=== PATIENT | female | born 1960 | race Caucasian/White ===

== ENCOUNTER 2017-04-26 16:00 | Outpatient (RCR) | payer BC ==
[2017-02-10 22:45] VITALS: BP 114/55
[~2017-04-26 16:00] MED LIST: CEFDINIR300 MG PO; CLONAZEPAM0.125 MG; CORTEF 10MG TAB10 MG PO; CORTEF 20MG TAB20 MG PO; DEPAKOTE ER 50500 MG PO; DEPAKOTE ER500 M1 PO; DESYREL 100MG100 MG PO; FLORINEF 00.1 MG/TAB PO; FLORINEF ACETA0.1 MG PO; HYDROCORTISONE 10MG PO; INDERAL20 MG PO; KLONOPIN0.5 MG PO; LEXAPRO20 MG PO; MYSOLINE50 M1 PO; PEPTO BISMOL262 MG PO; PREDNISONE10 MG PO; SYMBICORT1 AE5 IH; SYNTHROID RP0.1 MG PO; SYNTHROID0.075 MG PO; ULTRAM 50MG TAB50 MG PO; VITAMIN D32000 I1 PO; XANAX .25M0.25 MG/TA PO; XANAX0.25 M1 PO; XANAX0.25 MG PO
[2017-06-01] MEDS ORDERED: ULTRAM50 M1 PO (17:09)
[2017-06-01] MEDS ORDERED: ZOFRAN4 M2 PO (17:09)
[2017-06-01] MEDS ORDERED: HYDROCORTISONE 10MG PO (17:09)
[2017-06-01] MEDS ORDERED: BELSOMRA20 MG PO (17:10)
[2017-06-01] MEDS ORDERED: DETROL LA 4MG4 MG PO (17:11)
[2017-06-01] MEDS ORDERED: NEURONTIN300 M1 PO (17:12)
[2017-06-01] MEDS ORDERED: ESTROPIPATE PO (17:12)
[2017-06-01] MEDS ORDERED: YUVAFEM10 MCG VG (17:13)
[2017-06-01] MEDS ORDERED: MYSOLINE50 M1 PO (17:13)
== END 2017-04-26 16:30 | disposition home or self-care (01) ==
LOC: PT 16:00
DX: M25.572 Pain in left ankle and joints of left foot (principal); G89.18 Other acute postprocedural pain; L90.5 Scar conditions and fibrosis of skin

== ENCOUNTER → 2017-06-01 | Outpatient (CLI) | payer BC ==
[~2017-06-01] VITALS: Ht 170.2 cm; Wt 71.4 kg
[~2017-06-01] MED LIST changes: +BELSOMRA20 MG PO; +DETROL LA 4MG4 MG PO; +ESTROPIPATE PO; +NEURONTIN300 M1 PO; -SYNTHROID RP0.1 MG PO; +SYNTHROID112 MCG PO; +ULTRAM50 M1 PO; +YUVAFEM10 MCG VG; +ZOFRAN4 M2 PO
[2017-06-01 17:02] VITALS: BP 104/63
[2017-06-01 17:05] LABS: EOS % 0.1 % (1.0-5.0); HEMATOCRIT 46.1 % (37.0-47.0); HEMOGLOBIN 15.3 g/dL (12.5-16.0); LYMPH# 2.2 (1.50-4.00); MEAN CELL VOLUME 91 fl (78-100); MEAN CORPUSCULAR HEMOGLOBIN 30 pg (27-31); MEAN CORPUSCULAR HGB CONC 33 g/dL (33-37); MEAN PLATELET VOLUME 9.7 fl (7.4-10.4); MONO # 0.2 (0.20-0.80); NEU # 6.4 (1.40-6.50); PLATELET COUNT 268 K/mm3 (130-400); RED BLOOD COUNT 5.05 M/mm3 (4.10-5.30); RED CELL DISTRIBUTION WIDTH 13.1 % (11.5-14.5); WHITE BLOOD COUNT 8.9 K/mm3 (4.8-10.8)
[2017-06-01 17:24] LABS: BUN/CREATININE RATIO 11.6 (6.0-26.0); CALCIUM 9.7 mg/dL (8.4-10.2); POTASSIUM 4.4 mmol/L (3.6-5.0)
[2017-06-01 19:10] VITALS: BP 107/57
== END ==
LOC: AMSURD 16:07
PROVIDERS: Nurse Practitioner Family
DX: R68.83 Chills (without fever) (principal); R53.81 Other malaise; R61 Generalized hyperhidrosis; R53.83 Other fatigue
CPT/HCPCS: J2405; J3490; J7030

== ENCOUNTER 2017-06-04 15:20 | Emergency (ER) | payer BC ==
[~2017-06-04 15:20] MED LIST changes: +SYNTHROID RP0.1 MG PO; -SYNTHROID112 MCG PO
[2017-06-04 16:18] LABS: EOS # 0.1 (0.04-0.40); EOS % 1.5 % (1.0-5.0); HEMATOCRIT 42.4 % (37.0-47.0); LYMPH# 2.6 (1.50-4.00); MEAN CELL VOLUME 91 fl (78-100); MEAN CORPUSCULAR HEMOGLOBIN 30 pg (27-31); MEAN CORPUSCULAR HGB CONC 33 g/dL (33-37); MEAN PLATELET VOLUME 9.8 fl (7.4-10.4); MONO # 0.4 (0.20-0.80); NEU # 4.8 (1.40-6.50); PLATELET COUNT 261 K/mm3 (130-400); RED BLOOD COUNT 4.65 M/mm3 (4.10-5.30)
[2017-06-04 16:33] LABS: ALBUMIN 3.5 g/dL (3.5-5.0); BUN/CREATININE RATIO 8.3 (6.0-26.0); CALCIUM 8.7 mg/dL (8.4-10.2); POTASSIUM 3.6 mmol/L (3.6-5.0); TOTAL BILIRUBIN 0.5 mg/dL (0.2-1.3)
[2017-06-04 17:40] LABS: URINE APPEARANCE CLEAR; URINE COLOR YELLOW
[2017-06-04 17:41] LABS: URINE BILIRUBIN NEGATIVE (NEGATIVE); URINE BLOOD NEGATIVE (NEGATIVE); URINE GLUCOSE NEGATIVE (NEGATIVE); URINE KETONE NEGATIVE (NEGATIVE); URINE LEUKOCYTE ESTERASE NEGATIVE (NEGATIVE); URINE NITRATE NEGATIVE (NEGATIVE); URINE PROTEIN(semi-quant) TRACE mg/dL (NEGATIVE); URINE UROBILINOGEN NORMAL (NORMAL); URINE WBC 0-1 /hpf (0-3)
[2017-06-04] MEDS ORDERED: MAGNESIUM CITR100 MG PO (18:32)
[2017-06-04] MEDS ORDERED: DEPAKOTE ER 50500 MG PO (18:33)
[2017-06-04 20:25] VITALS: BP 116/48
== END 2017-06-04 20:25 | disposition home or self-care (01) ==
LOC: ED 15:20
PROVIDERS: Physician Assistant
DX: I95.9 Hypotension, unspecified (principal); E27.1 Primary adrenocortical insufficiency; E03.9 Hypothyroidism, unspecified; F41.9 Anxiety disorder, unspecified; G25.0 Essential tremor; G40.909 Epilepsy, unspecified, not intractable, without status epilepticus; Z87.891 Personal history of nicotine dependence; Z88.1 Allergy status to other antibiotic agents; Z88.0 Allergy status to penicillin; Z88.8 Allergy status to other drugs, medicaments and biological substances
CPT/HCPCS: J7120

== ENCOUNTER → 2017-11-16 | Outpatient (CLI) | payer BC ==
[~2017-11-16] VITALS: Ht 170.2 cm; Wt 72.8 kg
[~2017-11-16] MED LIST changes: +MAGNESIUM CITR100 MG PO; +PAXIL40 M1 PO
[2017-11-16 17:42] LABS: BASO # 0.1 (0.02-0.10); EOS # 0.2 (0.04-0.40); EOS % 2.1 % (1.0-5.0); HEMATOCRIT 46.3 % (37.0-47.0); HEMOGLOBIN 15.1 g/dL (12.5-16.0); LYMPH# 3.8 (1.50-4.00); MEAN CELL VOLUME 94 fl (78-100); MEAN CORPUSCULAR HEMOGLOBIN 31 pg (27-31); MEAN CORPUSCULAR HGB CONC 33 g/dL (33-37); MEAN PLATELET VOLUME 9.5 fl (7.4-10.4); MONO # 0.8 (0.20-0.80); NEU # 4.3 (1.40-6.50); PLATELET COUNT 303 K/mm3 (130-400); RED BLOOD COUNT 4.93 M/mm3 (4.10-5.30); RED CELL DISTRIBUTION WIDTH 14.4 % (11.5-14.5); WHITE BLOOD COUNT 9.2 K/mm3 (4.8-10.8)
[2017-11-16 17:44] VITALS: BP 110/59
[2017-11-16 17:50] LABS: ALBUMIN 4.1 g/dL (3.5-5.0); BUN/CREATININE RATIO 18.1 (6.0-26.0); CALCIUM 8.6 mg/dL (8.4-10.2); POTASSIUM 4.3 mmol/L (3.6-5.0); TOTAL BILIRUBIN 0.3 mg/dL (0.2-1.3); TOTAL PROTEIN 7.4 g/dL (6.3-8.2)
[2017-11-16 18:39] VITALS: BP 101/60
[2017-11-16 20:02] LABS: URINE APPEARANCE CLEAR; URINE BILIRUBIN NEGATIVE (NEGATIVE); URINE BLOOD NEGATIVE (NEGATIVE); URINE COLOR YELLOW; URINE GLUCOSE NEGATIVE (NEGATIVE); URINE KETONE NEGATIVE (NEGATIVE); URINE LEUKOCYTE ESTERASE NEGATIVE (NEGATIVE); URINE NITRATE NEGATIVE (NEGATIVE); URINE PROTEIN(semi-quant) NEGATIVE (NEGATIVE); URINE UROBILINOGEN NORMAL (NORMAL); URINE WBC 0-1 /hpf (0-3)
== END ==
LOC: AMSURD 16:51
PROVIDERS: Family Medicine
DX: R53.1 Weakness (principal); E03.4 Atrophy of thyroid (acquired)
CPT/HCPCS: J7030

== ENCOUNTER → 2017-12-29 | Outpatient (CLI) | payer BC ==
[2017-11-16 18:39] VITALS: BP 101/60
== END ==
LOC: RAD 12:11
DX: M51.36 Other intervertebral disc degeneration, lumbar region (principal); M85.88 Other specified disorders of bone density and structure, other site

== ENCOUNTER → 2018-02-16 | Outpatient (CLI) | payer BC ==
[2017-11-16 18:39] VITALS: BP 101/60
== END ==
LOC: RAD 11:37
DX: M79.605 Pain in left leg (principal); W19.XXXA Unspecified fall, initial encounter; Y92.009 Unspecified place in unspecified non-institutional (private) residence as the place of occurrence of the external cause

== ENCOUNTER → 2018-04-29 | Outpatient (CLI) | payer BC ==
[2017-11-16 18:39] VITALS: BP 101/60
[2018-04-29 17:19] LABS: EOS % 0.1 % (1.0-5.0); HEMATOCRIT 46.6 % (37.0-47.0); HEMOGLOBIN 15.3 g/dL (12.5-16.0); MEAN CELL VOLUME 92 fl (78-100); MEAN CORPUSCULAR HEMOGLOBIN 30 pg (27-31); MEAN CORPUSCULAR HGB CONC 33 g/dL (33-37); MEAN PLATELET VOLUME 10.1 fl (7.4-10.4); MONO # 0.4 (0.20-0.80); NEU # 4.6 (1.40-6.50); PLATELET COUNT 281 K/mm3 (130-400); RED BLOOD COUNT 5.09 M/mm3 (4.10-5.30); RED CELL DISTRIBUTION WIDTH 13.7 % (11.5-14.5)
[2018-04-29 17:23] LABS: ALBUMIN 4.6 g/dL (3.5-5.0); CALCIUM 9.8 mg/dL (8.4-10.2); POTASSIUM 4.7 mmol/L (3.6-5.0); TOTAL BILIRUBIN 0.4 mg/dL (0.2-1.3); TOTAL PROTEIN 7.2 g/dL (6.3-8.2)
== END ==
LOC: LAB 16:23
PROVIDERS: Physician Assistant
DX: R53.83 Other fatigue (principal); R68.89 Other general symptoms and signs; R11.0 Nausea; E89.41 Symptomatic postprocedural ovarian failure; R56.9 Unspecified convulsions; F41.9 Anxiety disorder, unspecified; E27.1 Primary adrenocortical insufficiency

== ENCOUNTER → 2018-06-14 | Outpatient (CLI) | payer BC ==
[~2018-06-14] VITALS: Ht 170.2 cm; Wt 72.8 kg
[2018-06-14 18:00] VITALS: BP 123/60
[2018-06-14 18:22] LABS: HEMATOCRIT 44.3 % (37.0-47.0); HEMOGLOBIN 14.6 g/dL (12.5-16.0); MEAN PLATELET VOLUME 9.9 fl (7.4-10.4); RED BLOOD COUNT 4.91 M/mm3 (4.10-5.30); RED CELL DISTRIBUTION WIDTH 13.2 % (11.5-14.5); WHITE BLOOD COUNT 6.2 K/mm3 (4.8-10.8)
[2018-06-14 18:45] LABS: ALBUMIN 4.2 g/dL (3.5-5.0); CALCIUM 9.5 mg/dL (8.4-10.2); POTASSIUM 3.8 mmol/L (3.6-5.0); TOTAL BILIRUBIN 0.4 mg/dL (0.2-1.3); TOTAL PROTEIN 6.8 g/dL (6.3-8.2)
== END ==
LOC: AMSURD 17:06
PROVIDERS: Nurse Practitioner
DX: E27.1 Primary adrenocortical insufficiency (principal)
CPT/HCPCS: J7030

== ENCOUNTER → 2018-06-24 | Outpatient (CLI) | payer BC ==
[~2018-06-24] VITALS: Ht 170.2 cm; Wt 72.8 kg
[~2018-06-24] MED LIST changes: +EFFEXOR XR150 M1 PO; +FLONASE ALLERG9.9 ML NS; +PROMETHAZINE12.5 M5; +TESSALON PERLE100 M1 PO; +ZANTAC150 M1 PO
[2018-06-24 12:45] VITALS: BP 137/76
[2018-06-24 13:21] LABS: HEMATOCRIT 45.1 % (37.0-47.0); HEMOGLOBIN 14.9 g/dL (12.5-16.0); MEAN PLATELET VOLUME 9.8 fl (7.4-10.4); RED BLOOD COUNT 4.99 M/mm3 (4.10-5.30); RED CELL DISTRIBUTION WIDTH 12.9 % (11.5-14.5); WHITE BLOOD COUNT 9.4 K/mm3 (4.8-10.8)
[2018-06-24 13:26] LABS: ALBUMIN 4.3 g/dL (3.5-5.0); CALCIUM 9.7 mg/dL (8.4-10.2); POTASSIUM 4.3 mmol/L (3.6-5.0); TOTAL BILIRUBIN 0.3 mg/dL (0.2-1.3)
[2018-06-24 13:28] LABS: URINE APPEARANCE CLEAR; URINE COLOR YELLOW
[2018-06-24 13:29] LABS: URINE BILIRUBIN NEGATIVE (NEGATIVE); URINE BLOOD NEGATIVE (NEGATIVE); URINE GLUCOSE NEGATIVE (NEGATIVE); URINE KETONE NEGATIVE (NEGATIVE); URINE LEUKOCYTE ESTERASE NEGATIVE (NEGATIVE); URINE MUCUS PRESENT (NOT PRESENT); URINE NITRATE NEGATIVE (NEGATIVE); URINE PROTEIN(semi-quant) TRACE mg/dL (NEGATIVE); URINE UROBILINOGEN NORMAL (NORMAL); URINE WBC 0-1 /hpf (0-3)
[2018-06-24 16:48] VITALS: BP 111/64
== END ==
LOC: AMSURD 12:19
PROVIDERS: Nurse Practitioner Family
DX: M54.16 Radiculopathy, lumbar region (principal); E27.1 Primary adrenocortical insufficiency; R53.81 Other malaise; R53.83 Other fatigue
CPT/HCPCS: J1885; J7030

== ENCOUNTER → 2018-06-27 | Outpatient (CLI) | payer BC ==
[2018-06-24 16:48] VITALS: BP 111/64
[2018-06-27 16:41] LABS: URINE APPEARANCE CLOUDY; URINE COLOR YELLOW
[2018-06-27 16:42] LABS: URINE BILIRUBIN NEGATIVE (NEGATIVE); URINE BLOOD TRACE (NEGATIVE); URINE GLUCOSE NEGATIVE (NEGATIVE); URINE KETONE 1+ (NEGATIVE); URINE LEUKOCYTE ESTERASE 2+ (NEGATIVE); URINE NITRATE NEGATIVE (NEGATIVE); URINE PROTEIN(semi-quant) TRACE mg/dL (NEGATIVE); URINE UROBILINOGEN NORMAL (NORMAL)
== END ==
LOC: LAB 15:39
PROVIDERS: Internal Medicine
DX: R56.9 Unspecified convulsions (principal); R53.83 Other fatigue; R10.9 Unspecified abdominal pain; N39.0 Urinary tract infection, site not specified; B99.9 Unspecified infectious disease

== ENCOUNTER → 2018-07-04 | Outpatient (CLI) | payer BC ==
[2018-06-24 16:48] VITALS: BP 111/64
== END ==
LOC: LAB 11:20
PROVIDERS: Internal Medicine
DX: D64.9 Anemia, unspecified (principal); K90.9 Intestinal malabsorption, unspecified

== ENCOUNTER 2018-12-05 15:12 | Emergency (ER) | payer BC ==
[2018-12-05] MEDS ORDERED: ALENDRONATE SOD70 MG PO (15:23)
[2018-12-05 16:01] LABS: HEMATOCRIT 44.1 % (37.0-47.0); HEMOGLOBIN 14.8 g/dL (12.5-16.0); LYMPH# 1.8 (1.50-4.00); MEAN CELL VOLUME 90 fl (78-100); MEAN CORPUSCULAR HEMOGLOBIN 30 pg (27-31); MEAN CORPUSCULAR HGB CONC 34 g/dL (33-37); MEAN PLATELET VOLUME 9.6 fl (7.4-10.4); MONO # 0.5 (0.20-0.80); NEU # 3.9 (1.40-6.50); PLATELET COUNT 219 K/mm3 (130-400); RED BLOOD COUNT 4.89 M/mm3 (4.10-5.30); RED CELL DISTRIBUTION WIDTH 13.4 % (11.5-14.5); WHITE BLOOD COUNT 6.3 K/mm3 (4.8-10.8)
[2018-12-05 16:06] LABS: ALBUMIN 4.2 g/dL (3.5-5.0)
[2018-12-05 16:08] LABS: CALCIUM 9.6 mg/dL (8.3-10.5)
[2018-12-05 16:09] LABS: TOTAL PROTEIN 6.8 g/dL (6.4-8.3)
[2018-12-05 16:11] LABS: TOTAL BILIRUBIN 0.3 mg/dL (0.2-1.2)
[2018-12-05 16:43] LABS: URINE WBC 0 /hpf (0-3)
[2018-12-05 16:59] LABS: PH-URINE 7.5 (5.0 - 8.0); URINE APPEARANCE CLEAR; URINE BILIRUBIN NEGATIVE (NEGATIVE); URINE BLOOD TRACE (NEGATIVE); URINE COLOR YELLOW; URINE GLUCOSE NEGATIVE (NEGATIVE); URINE KETONE NEGATIVE (NEGATIVE); URINE LEUKOCYTE ESTERASE NEGATIVE (NEGATIVE); URINE NITRATE NEGATIVE (NEGATIVE); URINE PROTEIN(semi-quant) NEGATIVE (NEGATIVE); URINE UROBILINOGEN NORMAL (NORMAL)
[2018-12-05 18:50] VITALS: BP 121/59
== END 2018-12-05 18:43 | disposition home or self-care (01) ==
LOC: ED 15:12
PROVIDERS: Nurse Practitioner Primary Care
DX: E27.1 Primary adrenocortical insufficiency (principal); F32.9 Major depressive disorder, single episode, unspecified; F41.9 Anxiety disorder, unspecified; Z90.710 Acquired absence of both cervix and uterus; Z98.51 Tubal ligation status; Z79.52 Long term (current) use of systemic steroids; Z79.51 Long term (current) use of inhaled steroids
CPT/HCPCS: J1100; J2405; J7030

== ENCOUNTER 2019-02-09 20:17 | Emergency (ER) | payer BC ==
[~2019-02-09 20:17] MED LIST changes: +ALENDRONATE SOD70 MG PO
[2019-02-09 21:21] LABS: HEMATOCRIT 41.2 % (37.0-47.0); HEMOGLOBIN 13.9 g/dL (12.5-16.0); LYMPH# 2.1 (1.50-4.00); MEAN CELL VOLUME 93 fl (78-100); MEAN CORPUSCULAR HEMOGLOBIN 32 pg (27-31); MEAN CORPUSCULAR HGB CONC 34 g/dL (33-37); MEAN PLATELET VOLUME 9.3 fl (7.4-10.4); MONO # 0.4 (0.20-0.80); NEU # 2.1 (1.40-6.50); PLATELET COUNT 240 K/mm3 (130-400); RED BLOOD COUNT 4.41 M/mm3 (4.10-5.30); RED CELL DISTRIBUTION WIDTH 13.1 % (11.5-14.5); WHITE BLOOD COUNT 4.6 K/mm3 (4.8-10.8)
[2019-02-09 21:29] LABS: ALBUMIN 3.7 g/dL (3.5-5.0); POTASSIUM 4.1 mmol/L (3.5-5.1)
[2019-02-09 21:32] LABS: TOTAL PROTEIN 5.8 g/dL (6.4-8.3)
[2019-02-09 21:33] LABS: TOTAL BILIRUBIN 0.3 mg/dL (0.2-1.2)
[2019-02-09 22:04] LABS: PH-URINE 8.5 (5.0 - 8.0); URINE APPEARANCE CLEAR; URINE BILIRUBIN NEGATIVE (NEGATIVE); URINE BLOOD NEGATIVE (NEGATIVE); URINE COLOR YELLOW; URINE GLUCOSE NEGATIVE (NEGATIVE); URINE KETONE NEGATIVE (NEGATIVE); URINE LEUKOCYTE ESTERASE NEGATIVE (NEGATIVE); URINE NITRATE NEGATIVE (NEGATIVE); URINE PROTEIN(semi-quant) NEGATIVE (NEGATIVE); URINE UROBILINOGEN NORMAL (NORMAL); URINE WBC 0-1 /hpf (0-3)
[2019-02-10 00:23] VITALS: BP 111/38
== END 2019-02-10 00:32 | disposition home or self-care (01) ==
LOC: ED 20:17
PROVIDERS: Nurse Practitioner Family
DX: E27.1 Primary adrenocortical insufficiency (principal); F32.9 Major depressive disorder, single episode, unspecified; F41.9 Anxiety disorder, unspecified; E03.9 Hypothyroidism, unspecified; G25.0 Essential tremor; Z86.69 Personal history of other diseases of the nervous system and sense organs; Z90.710 Acquired absence of both cervix and uterus; Z98.890 Other specified postprocedural states; Z87.891 Personal history of nicotine dependence
CPT/HCPCS: J1100; J1885; J2405; J2550; J7030

== ENCOUNTER 2019-03-03 21:56 | Emergency (ER) | payer BC ==
[~2019-03-03] VITALS: Ht 170.2 cm; Wt 61.4 kg
[2019-03-03 23:04] LABS: HEMOGLOBIN 13.7 g/dL (12.5-16.0); LYMPH# 3.3 (1.50-4.00); MEAN CELL VOLUME 95 fl (78-100); MEAN CORPUSCULAR HEMOGLOBIN 32 pg (27-31); MEAN CORPUSCULAR HGB CONC 33 g/dL (33-37); MEAN PLATELET VOLUME 9.4 fl (7.4-10.4); MONO # 0.7 (0.20-0.80); NEU # 2.7 (1.40-6.50); PLATELET COUNT 232 K/mm3 (130-400); RED BLOOD COUNT 4.34 M/mm3 (4.10-5.30); RED CELL DISTRIBUTION WIDTH 13.1 % (11.5-14.5); WHITE BLOOD COUNT 6.7 K/mm3 (4.8-10.8)
[2019-03-03 23:14] LABS: POTASSIUM 4.3 mmol/L (3.5-5.1)
[2019-03-03 23:15] LABS: CALCIUM 8.9 mg/dL (8.3-10.5)
[2019-03-04] MEDS ORDERED: ZOFRAN ODT4 MG PO (00:59)
[2019-03-04 01:09] VITALS: BP 100/58
== END 2019-03-04 01:10 | disposition home or self-care (01) ==
LOC: ED 21:56
PROVIDERS: Family Medicine
DX: R11.2 Nausea with vomiting, unspecified (principal); F41.9 Anxiety disorder, unspecified; E27.1 Primary adrenocortical insufficiency; M81.0 Age-related osteoporosis without current pathological fracture; F17.210 Nicotine dependence, cigarettes, uncomplicated; Z90.710 Acquired absence of both cervix and uterus; Z79.51 Long term (current) use of inhaled steroids
CPT/HCPCS: J1100; J2405; J3490; J7030

== ENCOUNTER → 2019-04-14 | Outpatient (CLI) | payer BC ==
[2019-03-08 18:50] VITALS: BP 115/55
[~2019-04-14] MED LIST changes: +ZOFRAN ODT4 MG PO
== END ==
LOC: RAD 16:12
DX: M85.88 Other specified disorders of bone density and structure, other site (principal); E27.1 Primary adrenocortical insufficiency; M81.0 Age-related osteoporosis without current pathological fracture

== ENCOUNTER → 2019-05-04 | Outpatient (CLI) | payer BC ==
[2019-03-08 18:50] VITALS: BP 115/55
== END ==
LOC: LAB 16:16
DX: E03.9 Hypothyroidism, unspecified (principal)

== ENCOUNTER → 2019-05-10 | Outpatient (CLI) | payer BC ==
[2019-03-08 18:50] VITALS: BP 115/55
[2019-05-10 11:45] LABS: HEMATOCRIT 44.8 % (37.0-47.0); HEMOGLOBIN 14.7 g/dL (12.5-16.0); MEAN PLATELET VOLUME 9.7 fl (7.4-10.4); RED BLOOD COUNT 4.77 M/mm3 (4.10-5.30); RED CELL DISTRIBUTION WIDTH 13.6 % (11.5-14.5)
[2019-05-10 11:54] LABS: POTASSIUM 3.8 mmol/L (3.5-5.1)
[2019-05-10 11:55] LABS: CALCIUM 9.3 mg/dL (8.3-10.5)
== END ==
LOC: AMSURD 11:34
PROVIDERS: Podiatrist
DX: Z01.818 Encounter for other preprocedural examination (principal); G57.61 Lesion of plantar nerve, right lower limb

== ENCOUNTER → 2019-06-27 | Outpatient (CLI) | payer BC ==
[2019-03-08 18:50] VITALS: BP 115/55
[2019-06-27 16:53] LABS: ALBUMIN 4.4 g/dL (3.5-5.0)
[2019-06-27 16:54] LABS: POTASSIUM 4.4 mmol/L (3.5-5.1)
[2019-06-27 16:55] LABS: CALCIUM 9.6 mg/dL (8.3-10.5)
[2019-06-27 16:56] LABS: TOTAL PROTEIN 6.7 g/dL (6.4-8.3)
[2019-06-27 16:58] LABS: TOTAL BILIRUBIN 0.3 mg/dL (0.2-1.2)
[2019-06-27 17:16] LABS: HEMATOCRIT 42.3 % (37.0-47.0); HEMOGLOBIN 13.9 g/dL (12.5-16.0); LYMPH# 2.2 (1.50-4.00); MEAN CELL VOLUME 93 fl (78-100); MEAN CORPUSCULAR HEMOGLOBIN 31 pg (27-31); MEAN CORPUSCULAR HGB CONC 33 g/dL (33-37); MEAN PLATELET VOLUME 10.3 fl (7.4-10.4); MONO # 0.5 (0.20-0.80); NEU # 6.6 (1.40-6.50); PLATELET COUNT 323 K/mm3 (130-400); RED BLOOD COUNT 4.54 M/mm3 (4.10-5.30); RED CELL DISTRIBUTION WIDTH 13.3 % (11.5-14.5); WHITE BLOOD COUNT 9.3 K/mm3 (4.8-10.8)
== END ==
LOC: LAB 16:18
PROVIDERS: Internal Medicine
DX: F33.9 Major depressive disorder, recurrent, unspecified (principal); G25.0 Essential tremor; K59.09 Other constipation; E03.9 Hypothyroidism, unspecified; E27.1 Primary adrenocortical insufficiency

== ENCOUNTER 2019-07-29 04:45 | Emergency (ER) | payer BC ==
[2019-07-29] MEDS ORDERED: VITAMIN D34000 UNIT PO (05:03)
[2019-07-29] MEDS ORDERED: VITAMIN B122500 MC1 PO (05:04)
[2019-07-29] MEDS ORDERED: LEVOTHYROXIN0.075 MG PO (05:04)
[2019-07-29] MEDS ORDERED: INDERAL 10MG10 MG PO (05:06)
[2019-07-29] MEDS ORDERED: DETROL LA 4MG4 MG PO (05:06)
[2019-07-29] MEDS ORDERED: VENLAFAXINE HY150 MG PO (05:09)
[2019-07-29] MEDS ORDERED: XANAX0.25 M1 PO (05:10)
[2019-07-29 05:55] LABS: HEMATOCRIT 41.8 % (37.0-47.0); HEMOGLOBIN 13.5 g/dL (12.5-16.0); LYMPH# 2.3 (1.50-4.00); MEAN CELL VOLUME 94 fl (78-100); MEAN CORPUSCULAR HEMOGLOBIN 30 pg (27-31); MEAN CORPUSCULAR HGB CONC 32 g/dL (33-37); MEAN PLATELET VOLUME 9.8 fl (7.4-10.4); MONO # 0.8 (0.20-0.80); NEU # 2.9 (1.40-6.50); PLATELET COUNT 131 K/mm3 (130-400); RED BLOOD COUNT 4.47 M/mm3 (4.10-5.30); RED CELL DISTRIBUTION WIDTH 13.2 % (11.5-14.5); WHITE BLOOD COUNT 5.9 K/mm3 (4.8-10.8)
[2019-07-29 06:10] LABS: ALBUMIN 3.3 g/dL (3.5-5.0); POTASSIUM 3.7 mmol/L (3.5-5.1)
[2019-07-29 06:11] LABS: CALCIUM 8.8 mg/dL (8.3-10.5)
[2019-07-29 06:13] LABS: TOTAL PROTEIN 5.5 g/dL (6.4-8.3)
[2019-07-29 06:14] LABS: TOTAL BILIRUBIN 0.2 mg/dL (0.2-1.2)
[2019-07-29 06:28] LABS: URINE APPEARANCE CLEAR; URINE COLOR YELLOW
[2019-07-29 06:29] LABS: PH-URINE 6.5 (5.0 - 8.0); URINE BILIRUBIN NEGATIVE (NEGATIVE); URINE BLOOD NEGATIVE (NEGATIVE); URINE GLUCOSE NEGATIVE (NEGATIVE); URINE KETONE NEGATIVE (NEGATIVE); URINE LEUKOCYTE ESTERASE TRACE (NEGATIVE); URINE NITRATE NEGATIVE (NEGATIVE); URINE PROTEIN(semi-quant) NEGATIVE (NEGATIVE); URINE UROBILINOGEN NORMAL (NORMAL)
[2019-07-29 08:30] VITALS: BP 104/51
== END 2019-07-29 08:27 | disposition home or self-care (01) ==
LOC: ED 04:45
PROVIDERS: Family Medicine
DX: E27.1 Primary adrenocortical insufficiency (principal); E86.9 Volume depletion, unspecified; G43.909 Migraine, unspecified, not intractable, without status migrainosus; F41.9 Anxiety disorder, unspecified; F32.9 Major depressive disorder, single episode, unspecified; E03.9 Hypothyroidism, unspecified
CPT/HCPCS: J1100; J2405; J7030

== ENCOUNTER → 2019-10-06 | Outpatient (CLI) | payer BC ==
[~2019-10-06] MED LIST changes: +INDERAL 10MG10 MG PO; +LEVOTHYROXIN0.075 MG PO; +VENLAFAXINE HY150 MG PO; +VITAMIN B122500 MC1 PO; +VITAMIN D34000 UNIT PO
[2019-10-06 12:02] LABS: HEMATOCRIT 44.5 % (37.0-47.0); HEMOGLOBIN 14.4 g/dL (12.5-16.0); LYMPH# 3.5 (1.50-4.00); MEAN CELL VOLUME 97 fl (78-100); MEAN CORPUSCULAR HEMOGLOBIN 31 pg (27-31); MEAN CORPUSCULAR HGB CONC 32 g/dL (33-37); MONO # 0.7 (0.20-0.80); NEU # 2.1 (1.40-6.50); PLATELET COUNT 122 K/mm3 (130-400); RED BLOOD COUNT 4.59 M/mm3 (4.10-5.30); RED CELL DISTRIBUTION WIDTH 16.7 % (11.5-14.5); WHITE BLOOD COUNT 6.4 K/mm3 (4.8-10.8)
[2019-10-06 12:11] LABS: ALBUMIN 3.9 g/dL (3.5-5.0)
[2019-10-06 12:12] LABS: POTASSIUM 3.8 mmol/L (3.5-5.1)
[2019-10-06 12:13] LABS: CALCIUM 9.5 mg/dL (8.3-10.5)
[2019-10-06 12:14] LABS: TOTAL PROTEIN 6.4 g/dL (6.4-8.3)
[2019-10-06 12:16] LABS: TOTAL BILIRUBIN 0.3 mg/dL (0.2-1.2)
[2019-10-06 13:11] LABS: ERYTHROCYTE SEDIMENTATION RATE 2 mm/hr (0-30)
== END ==
LOC: LAB 10:56
PROVIDERS: Internal Medicine
DX: E27.1 Primary adrenocortical insufficiency (principal); G25.79 Other drug induced movement disorders

== ENCOUNTER → 2019-10-24 | Outpatient (CLI) | payer BC ==
[2019-10-24 08:33] LABS: HEMATOCRIT 42.2 % (37.0-47.0); HEMOGLOBIN 13.7 g/dL (12.5-16.0); MEAN CELL VOLUME 98 fl (78-100); MEAN CORPUSCULAR HEMOGLOBIN 32 pg (27-31); MEAN CORPUSCULAR HGB CONC 33 g/dL (33-37); MEAN PLATELET VOLUME 9.3 fl (7.4-10.4); PLATELET COUNT 264 K/mm3 (130-400); RED BLOOD COUNT 4.29 M/mm3 (4.10-5.30); WHITE BLOOD COUNT 6.6 K/mm3 (4.8-10.8)
[2019-10-24 08:45] LABS: ALBUMIN 4.2 g/dL (3.5-5.0); POTASSIUM 3.7 mmol/L (3.5-5.1)
[2019-10-24 08:46] LABS: CALCIUM 9.3 mg/dL (8.3-10.5)
[2019-10-24 08:47] LABS: TOTAL PROTEIN 6.8 g/dL (6.4-8.3)
[2019-10-24 08:49] LABS: TOTAL BILIRUBIN 0.4 mg/dL (0.2-1.2)
[2019-10-24 09:44] LABS: ERYTHROCYTE SEDIMENTATION RATE 0 mm/hr (0-30)
== END ==
LOC: LAB 08:13
PROVIDERS: Internal Medicine
DX: E27.1 Primary adrenocortical insufficiency (principal); R25.1 Tremor, unspecified

== ENCOUNTER → 2020-06-10 | Outpatient (CLI) | payer BC | LOC: LAB 09:59 | DX: R51.9 Headache, unspecified (principal); R68.83 Chills (without fever); R09.81 Nasal congestion; R11.0 Nausea; R53.83 Other fatigue; Z20.828 Contact with and (suspected) exposure to other viral communicable diseases ==

== ENCOUNTER → 2020-06-21 | Outpatient (CLI) | payer BC ==
[2020-06-11 17:16] VITALS: BP 107/60
== END ==
LOC: RAD 13:43
DX: M79.671 Pain in right foot (principal); M79.604 Pain in right leg; R10.2 Pelvic and perineal pain

== ENCOUNTER → 2020-08-01 | Outpatient (CLI) | payer BC ==
[~2020-08-01] MED LIST changes: +AMOXICILLIN AND1 TA2 PO; +ATIVAN0.5 MG PO; +HYDROXYZINE HYD50 M1 PO; +LEVOXYL0.075 MG PO; +LEVOXYL50 MCG PO; +MORGIDOX 2X100100 MG PO; +PHENERGAN 25 TA25 MG PO; +VITAMIN D3125 MC4 PO; -VITAMIN D34000 UNIT PO
[2020-08-01 15:37] VITALS: BP 112/77
== END ==
LOC: AMSURD 15:23
DX: Z01.818 Encounter for other preprocedural examination (principal); I45.10 Unspecified right bundle-branch block

== ENCOUNTER → 2020-08-21 | Day surgery (SDC) | payer BC ==
[2020-08-01 15:37] VITALS: BP 112/77
== END ==
LOC: MSO 08:00
DX: H26.8 Other specified cataract (principal); E27.1 Primary adrenocortical insufficiency; G25.0 Essential tremor; G47.33 Obstructive sleep apnea (adult) (pediatric); Z79.890 Hormone replacement therapy; Z79.899 Other long term (current) drug therapy; Z79.52 Long term (current) use of systemic steroids; E03.9 Hypothyroidism, unspecified
CPT/HCPCS: 00142; J0171; J2250; V2632

== ENCOUNTER 2020-10-19 20:17 | Emergency (ER) | payer BC ==
[~2020-10-19 20:17] MED LIST changes: -AMOXICILLIN AND1 TA2 PO; -ATIVAN0.5 MG PO; -LEVOXYL0.075 MG PO; -LEVOXYL50 MCG PO; -MORGIDOX 2X100100 MG PO; -PHENERGAN 25 TA25 MG PO
[2020-10-19] MEDS ORDERED: HYDROCORTISONE 10MG PO (20:29)
[2020-10-19] MEDS ORDERED: LEVOXYL50 MCG PO (20:30)
[2020-10-19 20:50] LABS: BASO # 0.05 (0.02-0.10); EOS % 1.4 % (1.0-5.0); HEMATOCRIT 44.2 % (37.0-47.0); HEMOGLOBIN 14.3 g/dL (12.5-16.0); LYMPH# 1.23 (1.50-4.00); MEAN CELL VOLUME 88 fl (78-100); MEAN CORPUSCULAR HEMOGLOBIN 29 pg (27-31); MEAN CORPUSCULAR HGB CONC 32 g/dL (33-37); MEAN PLATELET VOLUME 8.6 fl (7.4-10.4); MONO # 0.58 (0.20-0.80); NEU # 5.33 (1.40-6.50); PLATELET COUNT 247 K/mm3 (130-400); RED CELL DISTRIBUTION WIDTH 14.5 % (11.5-14.5); WHITE BLOOD COUNT 7.3 K/mm3 (4.8-10.8)
[2020-10-19 20:59] LABS: POTASSIUM 3.8 mmol/L (3.5-5.1)
[2020-10-19 21:00] LABS: CALCIUM 8.9 mg/dL (8.3-10.5)
[2020-10-20 01:17] VITALS: BP 114/56
[2020-10-21] MEDS ORDERED: ATIVAN0.5 MG PO (15:37)
== END 2020-10-20 01:17 | disposition home or self-care (01) ==
LOC: ED 20:17
PROVIDERS: Family Medicine
DX: R53.81 Other malaise (principal); R53.83 Other fatigue; T50.B95A Adverse effect of other viral vaccines, initial encounter; E27.1 Primary adrenocortical insufficiency; Z87.891 Personal history of nicotine dependence

== ENCOUNTER 2020-10-21 12:35 | Emergency (ER) | payer BC ==
[~2020-10-21 12:35] MED LIST changes: +LEVOXYL50 MCG PO
[2020-10-21 12:53] LABS: BASO # 0.08 (0.02-0.10); EOS # 0.42 (0.04-0.40); EOS % 5.6 % (1.0-5.0); HEMOGLOBIN 14.7 g/dL (12.5-16.0); LYMPH# 2.97 (1.50-4.00); MEAN CELL VOLUME 88 fl (78-100); MEAN CORPUSCULAR HEMOGLOBIN 29 pg (27-31); MEAN CORPUSCULAR HGB CONC 33 g/dL (33-37); MEAN PLATELET VOLUME 8.9 fl (7.4-10.4); MONO # 0.77 (0.20-0.80); NEU # 3.31 (1.40-6.50); PLATELET COUNT 263 K/mm3 (130-400); RED BLOOD COUNT 5.14 M/mm3 (4.10-5.30); RED CELL DISTRIBUTION WIDTH 14.2 % (11.5-14.5); WHITE BLOOD COUNT 7.6 K/mm3 (4.8-10.8)
[2020-10-21 13:06] LABS: ALBUMIN 4.2 g/dL (3.5-5.0); POTASSIUM 4.8 mmol/L (3.5-5.1)
[2020-10-21 13:08] LABS: CALCIUM 9.7 mg/dL (8.3-10.5)
[2020-10-21 13:09] LABS: TOTAL PROTEIN 7.1 g/dL (6.4-8.3)
[2020-10-21 13:10] LABS: CARBON DIOXIDE 25 mmol/L (22-29)
[2020-10-21 13:11] LABS: TOTAL BILIRUBIN 0.3 mg/dL (0.2-1.2)
[2020-10-21 13:14] LABS: AST-SGOT 16 U/L (5-34); PARTIAL THROMBOPLASTIN TIME 23.1 SECONDS (21.0-32.0); PROTHROMBIN TIME 9.5 SECONDS (9.0-12.0)
[2020-10-21 13:15] LABS: ALT/SGPT 24 U/L (0-55)
[2020-10-21 13:16] LABS: LIPASE 76 U/L (8-78)
[2020-10-21 13:19] LABS: D-DIMER 0.45 mg/L FEU (0.15-0.50); SODIUM 137 mmol/L (136-145)
[2020-10-21 13:21] LABS: GLUCOSE 112 mg/dL (65-105)
[2020-10-21 13:26] LABS: TROPONIN-I < 0.03 ng/mL (<0.030)
[2020-10-21] MEDS ORDERED: ATIVAN0.5 MG PO (15:37)
[2020-10-21 16:03] VITALS: BP 112/64
== END 2020-10-21 15:44 | disposition home or self-care (01) ==
LOC: ED 12:35
PROVIDERS: Nurse Practitioner
DX: R53.81 Other malaise (principal); R53.83 Other fatigue; R07.89 Other chest pain; R52 Pain, unspecified; T50.B95A Adverse effect of other viral vaccines, initial encounter; F32.9 Major depressive disorder, single episode, unspecified; E27.1 Primary adrenocortical insufficiency; Z87.891 Personal history of nicotine dependence
CPT/HCPCS: J1885

== ENCOUNTER → 2020-11-19 | Outpatient (CLI) | payer BC ==
[~2020-11-19] MED LIST changes: +AMOXICILLIN AND1 TA2 PO; +ATIVAN0.5 MG PO; +LEVOXYL0.075 MG PO; +MORGIDOX 2X100100 MG PO; +PHENERGAN 25 TA25 MG PO
[2020-11-19 12:01] LABS: URINE APPEARANCE CLEAR; URINE BILIRUBIN NEGATIVE (NEGATIVE); URINE BLOOD NEGATIVE (NEGATIVE); URINE COLOR YELLOW; URINE GLUCOSE NEGATIVE (NEGATIVE); URINE KETONE NEGATIVE (NEGATIVE); URINE LEUKOCYTE ESTERASE TRACE (NEGATIVE); URINE NITRATE NEGATIVE (NEGATIVE); URINE PROTEIN(semi-quant) NEGATIVE (NEGATIVE); URINE UROBILINOGEN NORMAL (NORMAL)
== END ==
LOC: LAB 11:16
PROVIDERS: Physician Assistant
DX: N39.0 Urinary tract infection, site not specified (principal)

== ENCOUNTER → 2020-12-04 | Outpatient (CLI) | payer BC | LOC: MAMMO 12-03 16:00 | DX: Z12.31 Encounter for screening mammogram for malignant neoplasm of breast (principal) ==

== ENCOUNTER 2021-03-19 13:10 | Emergency (ER) | payer BC ==
[~2021-03-19 13:10] MED LIST changes: -AMOXICILLIN AND1 TA2 PO; -LEVOXYL0.075 MG PO; -MORGIDOX 2X100100 MG PO; -PHENERGAN 25 TA25 MG PO
[2021-03-19] MEDS ORDERED: AMOXICILLIN AND1 TA2 PO (13:35)
[2021-03-19] MEDS ORDERED: LEVOXYL0.075 MG PO (13:37)
[2021-03-19 13:51] LABS: BASO # 0.04 K/mm3 (0.02-0.10); EOS # 0.29 K/mm3 (0.04-0.40); EOS % 3.6 % (1.0-5.0); HEMATOCRIT 45.2 % (37.0-47.0); HEMOGLOBIN 14.8 g/dL (12.5-16.0); LYMPH# 1.89 K/mm3 (1.50-4.00); MEAN CELL VOLUME 86 fl (78-100); MEAN CORPUSCULAR HEMOGLOBIN 28 pg (27-31); MEAN CORPUSCULAR HGB CONC 33 g/dL (33-37); MEAN PLATELET VOLUME 8.5 fl (7.4-10.4); MONO # 0.77 K/mm3 (0.20-0.80); NEU # 5.06 K/mm3 (1.40-6.50); PLATELET COUNT 300 K/mm3 (130-400); RED BLOOD COUNT 5.24 M/mm3 (4.10-5.30); RED CELL DISTRIBUTION WIDTH 13.4 % (11.5-14.5); WHITE BLOOD COUNT 8.1 K/mm3 (4.8-10.8)
[2021-03-19 14:07] LABS: ALBUMIN 3.7 g/dL (3.4-4.8); POTASSIUM 4.1 mmol/L (3.5-5.1)
[2021-03-19 14:08] LABS: CALCIUM 8.9 mg/dL (8.3-10.5)
[2021-03-19 14:09] LABS: TOTAL PROTEIN 6.4 g/dL (6.2-8.1)
[2021-03-19 14:11] LABS: TOTAL BILIRUBIN 0.4 mg/dL (0.2-1.2)
[2021-03-19] MEDS ORDERED: MORGIDOX 2X100100 MG PO (16:43)
[2021-03-19] MEDS ORDERED: PHENERGAN 25 TA25 MG PO (16:43)
[2021-03-19 17:03] VITALS: BP 106/45
== END 2021-03-19 17:19 | disposition home or self-care (01) ==
LOC: ED 13:10
PROVIDERS: Physician Assistant
DX: E27.1 Primary adrenocortical insufficiency (principal); E86.0 Dehydration; J32.9 Chronic sinusitis, unspecified; E03.9 Hypothyroidism, unspecified; Z87.891 Personal history of nicotine dependence; Z20.822 Contact with and (suspected) exposure to COVID-19; Z79.890 Hormone replacement therapy
CPT/HCPCS: J1100; J2405; J7030

== ENCOUNTER 2021-05-03 21:44 | Emergency (ER) | payer BC ==
[~2021-05-03] VITALS: Ht 170.2 cm; Wt 83.6 kg
[~2021-05-03 21:44] MED LIST changes: +AMOXICILLIN AND1 TA2 PO; +LEVOXYL0.075 MG PO; +MORGIDOX 2X100100 MG PO; +PHENERGAN 25 TA25 MG PO
[2021-05-03 22:27] LABS: HEMATOCRIT 43.3 % (37.0-47.0); HEMOGLOBIN 14.5 g/dL (12.5-16.0); MEAN PLATELET VOLUME 8.6 fl (7.4-10.4); RED BLOOD COUNT 5.08 M/mm3 (4.10-5.30); RED CELL DISTRIBUTION WIDTH 13.6 % (11.5-14.5); WHITE BLOOD COUNT 10.5 K/mm3 (4.8-10.8)
[2021-05-03] MEDS ORDERED: CLEOCIN HCL150 M1 PO (22:41)
[2021-05-03 23:04] VITALS: BP 109/56
== END 2021-05-03 23:04 | disposition home or self-care (01) ==
LOC: ED 21:44
PROVIDERS: Family Medicine
DX: K11.8 Other diseases of salivary glands (principal); E27.1 Primary adrenocortical insufficiency; E03.9 Hypothyroidism, unspecified; Z79.890 Hormone replacement therapy

== ENCOUNTER → 2021-06-12 | Outpatient (CLI) | payer BC ==
[~2021-06-12] MED LIST changes: +CLEOCIN HCL150 M1 PO
== END ==
LOC: LAB 11:21
DX: Z20.822 Contact with and (suspected) exposure to COVID-19 (principal)

== ENCOUNTER → 2021-09-20 | Outpatient (CLI) | payer BC | LOC: RAD 12:35 | DX: S99.912A Unspecified injury of left ankle, initial encounter (principal); S99.922A Unspecified injury of left foot, initial encounter; M25.552 Pain in left hip ==

== ENCOUNTER → 2023-11-12 | Outpatient (CLI) | payer BC ==
[~2023-11-12] MED LIST changes: +METRONIDAZOLE500 M1 PO
[2023-11-12 19:42] LABS: CALCIUM 8.9 mg/dL (8.3-10.5)
[2023-11-12 19:43] LABS: TOTAL PROTEIN 6.2 g/dL (6.2-8.1)
[2023-11-12 19:45] LABS: TOTAL BILIRUBIN 0.2 mg/dL (0.2-1.2)
== END ==
LOC: LAB 19:22
PROVIDERS: Nurse Practitioner
DX: E27.1 Primary adrenocortical insufficiency (principal); M81.8 Other osteoporosis without current pathological fracture; E55.9 Vitamin D deficiency, unspecified; E03.9 Hypothyroidism, unspecified; R73.03 Prediabetes

== ENCOUNTER 2023-12-01 18:32 | Emergency (ER) | payer BC ==
[~2023-12-01] VITALS: Ht 170.2 cm; Wt 79.5 kg
[~2023-12-01 18:32] MED LIST changes: -METRONIDAZOLE500 M1 PO
[2023-12-01] MEDS ORDERED: NS 1,000 ML IV ONE (19:00)
[2023-12-01 19:20] LABS: BASO # 0.07 K/mm3 (0.02-0.10); EOS # 0.27 K/mm3 (0.04-0.40); HEMATOCRIT 45.1 % (37.0-47.0); HEMOGLOBIN 14.6 g/dL (12.5-16.0); LYMPH# 3.26 K/mm3 (1.50-4.00); MEAN CELL VOLUME 79 fl (78-100); MEAN CORPUSCULAR HEMOGLOBIN 26 pg (27-31); MEAN CORPUSCULAR HGB CONC 32 g/dL (33-37); MEAN PLATELET VOLUME 8.5 fl (7.4-10.4); MONO # 0.69 K/mm3 (0.20-0.80); NEU # 4.59 K/mm3 (1.40-6.50); PLATELET COUNT 321 K/mm3 (130-400); RED CELL DISTRIBUTION WIDTH 15.2 % (11.5-14.5); WHITE BLOOD COUNT 8.9 K/mm3 (4.8-10.8)
[2023-12-01 19:23] LABS: ALBUMIN 4.3 g/dL (3.4-4.8)
[2023-12-01 19:24] LABS: CALCIUM 9.7 mg/dL (8.3-10.5)
[2023-12-01 19:25] LABS: URINE APPEARANCE CLEAR (CLEAR); URINE BILIRUBIN 1+ (NEGATIVE); URINE BLOOD NEGATIVE (NEGATIVE); URINE COLOR YELLOW (YELLOW); URINE GLUCOSE NEGATIVE (NEGATIVE); URINE KETONE NEGATIVE (NEGATIVE); URINE LEUKOCYTE ESTERASE TRACE (NEGATIVE); URINE NITRATE NEGATIVE (NEGATIVE); URINE PROTEIN(semi-quant) NEGATIVE (NEGATIVE)
[2023-12-01 19:26] LABS: TOTAL PROTEIN 6.6 g/dL (6.2-8.1)
[2023-12-01 19:26] LABS: URINE MUCUS PRESENT (NOT PRESENT)
[2023-12-01 19:27] LABS: TOTAL BILIRUBIN 0.5 mg/dL (0.2-1.2)
[2023-12-01] MEDS ORDERED: Iohexol 300 - 100 ML VIAL IV ONE (19:48)
[2023-12-01] MEDS ORDERED: ZOFRAN ODT4 MG PO (20:59)
[2023-12-01] MEDS ORDERED: METRONIDAZOLE500 M1 PO (20:59)
[2023-12-01] MEDS ORDERED: Home Ondansetron ODT 4 MG #2 ODT/PACK PO ONE (21:00)
[2023-12-01] MEDS ORDERED: metroNIDAZOLE 250 MG TABLET PO ONE (21:00)
[2023-12-01 21:23] VITALS: BP 116/63
== END 2023-12-01 21:23 | disposition home or self-care (01) ==
LOC: ED 18:32
PROVIDERS: Family Medicine
DX: K52.9 Noninfective gastroenteritis and colitis, unspecified (principal)
CPT/HCPCS: J7030; Q9967

== ENCOUNTER → 2024-01-27 | Outpatient (CLI) | payer BC ==
[~2024-01-27] MED LIST changes: +METRONIDAZOLE500 M1 PO
== END ==
LOC: MAMMO 13:56
DX: Z12.31 Encounter for screening mammogram for malignant neoplasm of breast (principal); Z01.419 Encounter for gynecological examination (general) (routine) without abnormal findings